=== PATIENT | female | born 2000 | race Caucasian/White ===

== ENCOUNTER 2022-05-04 15:58 | Emergency (ER) | payer OTHER ==
--- NOTE | 2022-05-04 19:34 | ER ---
Nurse's Notes [facility] Name: Nayeli Christensen Age: 22 yrs Sex: Female : 2000 Arrival Date: 05/04/2022 Time: 16:16 Bed 10 Private MD: Diagnosis: SARS-associated coronavirus as the cause of diseases classified elsewhere Presentation: 05/04 17:16 Chief complaint: Patient states: Pt reports sore throat and nasal congestion x2 days. kb3 Pt also reports she [place]. Coronavirus screen: Vaccine status: Patient reports being unvaccinated. Client denies travel out of the [place] in the last 14 days. congestion, runny nose, sore throat, Client presents with at least one sign or symptom that may indicate coronavirus-19. Standard/surgical mask placed on the client. Provider contacted for isolation considerations. Ebola Screen: Patient negative for fever greater than or equal to 101.5 degrees Fahrenheit, and additional compatible Ebola Virus Disease symptoms Patient denies exposure to infectious person. Patient denies travel to an Ebola-affected area in the 21 days before illness onset. No symptoms or risks identified at this time. Initial Sepsis Screen: Does the patient meet any 2 criteria? No. Patient's initial sepsis screen is negative. Does the patient have a suspected source of infection? No. Patient's initial sepsis screen is negative. Risk Assessment: Do you want to hurt yourself or someone else? Patient reports no desire to harm self or others. Onset of symptoms was May 02, 2022. 17:16 Method Of Arrival: Ambulatory kb3 17:16 Acuity: REMA 4 kb3 Triage Assessment: 17:19 General: Appears in no apparent distress. Behavior is calm, cooperative. Pain: kb3 Complains of pain in neck Pain does not radiate. Pain currently is 7 out of 10 on a pain scale. Quality of pain is described as burning, Pain began 2-3 days ago. 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 Last tetanus immunization: up to date. - Social history:: Smoking status: Reported history of juuling and/or vaping. Patient/guardian denies using alcohol, street drugs. Screenin:19 Abuse screen: Denies threats or abuse. Denies injuries from another. Nutritional kd3 screening: No deficits noted. Tuberculosis screening: No symptoms or risk factors identified. Fall Risk None identified. Assessment: 19:20 General: Appears in no apparent distress. Behavior is calm, cooperative. Neuro: Level kd3 of Consciousness is awake, alert, obeys commands, Oriented to person, place, time, situation. Respiratory: Airway is patent Trachea midline Respiratory effort is even, unlabored. Vital Signs: 17:16 BP 101 / 61; Pulse 70; Resp 20; Temp 96.7; Pulse Ox 100% ; Weight 81.65 kg; Height 5 kb3 ft. 4 in. (162.56 cm); Pain 0/10; 19:18 Temp 98(O); kd3 17:16 Body Mass Index 30.90 (81.65 kg, 162.56 cm) kb3 ED Course: 16:16 Patient arrived in ED. mr 16:22 Aylin Burns FNP-C is [facility]. snw 16:22 Joe Martínez MD is Attending Physician. snw 17:19 Triage completed. kb3 17:19 Arm band placed on left wrist. kb3 19:15 Kina Clements, RN is Primary Nurse. kd3 19:19 Patient has correct armband on for positive identification. kd3 19:20 No provider procedures requiring assistance completed. kd3 19:48 Patient did not have IV access during this emergency room visit. kd3 Administered Medications: No medications were administered Medication: 19:20 VIS not applicable for this client. kd3 Outcome: 19:34 Discharge ordered by . snw 19:48 Discharged to home ambulatory. kd3 19:48 Condition: stable 19:48 Discharge instructions given to patient, family, Instructed on discharge instructions, follow up and referral plans. medication usage, Demonstrated understanding of instructions, follow-up care, medications, Prescriptions given X 2. 19:48 Patient left the ED. kd3 Signatures: Aylin Burns, BLOOD BANK BUSINESS MANAGER-C BLOOD BANK BUSINESS MANAGER-Csnw Sharon Rolle mr Kina Clements, RN RN kd3 Trina Amin, RN RN kb3
--- NOTE | 2022-05-04 19:34 | EDPHYS ---
Physician Documentation [facility] Name: Nayeli Christensen Age: 22 yrs Sex: Female : 2000 Arrival Date: 05/04/2022 Time: 16:16 Bed 10 Private MD: ED Physician Joe Martínez HPI: 05/04 19:44 This 22 yrs old Female presents to ER via Ambulatory with complaints of Medication snw Refill, Sore Throat. 19:44 The patient presents to the emergency department requesting refill(s) for: citalopram snw and propranolol. The patient chronically suffers from anxiety. The patient has not experienced similar symptoms in the past. It is unknown whether or not the patient has recently seen a physician. 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 Last tetanus immunization: up to date. - Social history:: Smoking status: Reported history of juuling and/or vaping. Patient/guardian denies using alcohol, street drugs. ROS: 19:43 Constitutional: Negative for fever, chills, and weight loss, Eyes: Negative for injury, snw pain, redness, and discharge, ENT: Negative for injury and discharge, + sore throat Neck: Negative for injury, pain, and swelling, Cardiovascular: Negative for chest pain, palpitations, and edema. 19:43 Abdomen/GI: Negative for abdominal pain, nausea, vomiting, diarrhea, and constipation, Back: Negative for injury and pain, : Negative for injury, bleeding, discharge, and swelling, MS/Extremity: Negative for injury and deformity, Skin: Negative for injury, rash, and discoloration, Neuro: Negative for headache, weakness, numbness, tingling, and seizure, Psych: Negative for depression, anxiety, suicide ideation, homicidal ideation, and hallucinations. 19:43 Respiratory: Positive for cough, with no reported sputum. Exam: 19:41 Constitutional: This is a well developed, well nourished patient who is awake, alert, snw and in no acute distress. Head/Face: Normocephalic, atraumatic. Eyes: Pupils equal round and reactive to light, extra-ocular motions intact. Lids and lashes normal. Conjunctiva and sclera are non-icteric and not injected. Cornea within normal limits. Periorbital areas with no swelling, redness, or edema. Neck: Trachea midline, no thyromegaly or masses palpated, and no cervical lymphadenopathy. Supple, full range of motion without nuchal rigidity, or vertebral point tenderness. No Meningismus. Chest/axilla: Normal chest wall appearance and motion. Nontender with no deformity. No lesions are appreciated. Cardiovascular: Regular rate and rhythm with a normal S1 and S2. No gallops, murmurs, or rubs. Normal PMI, no JVD. No pulse deficits. Respiratory: Lungs have equal breath sounds bilaterally, clear to auscultation and percussion. No rales, rhonchi or wheezes noted. No increased work of breathing, no retractions or nasal flaring. Abdomen/GI: Soft, non-tender, with normal bowel sounds. No distension or tympany. No guarding or rebound. No evidence of tenderness throughout. Back: No spinal tenderness. No costovertebral tenderness. Full range of motion. Skin: Warm, dry with normal turgor. Normal color with no rashes, no lesions, and no evidence of cellulitis. MS/ Extremity: Pulses equal, no cyanosis. Neurovascular intact. Full, normal range of motion. Neuro: Awake and alert, GCS 15, oriented to person, place, time, and situation. Cranial nerves II-XII grossly intact. Motor strength 5/5 in all extremities. Sensory grossly intact. Cerebellar exam normal. Normal gait. Psych: Awake, alert, with orientation to person, place and time. Behavior, mood, and affect are within normal limits. 19:41 ENT: TM's: are normal, Mouth: is normal, Posterior pharynx: erythema, that is moderate. Vital Signs: 17:16 BP 101 / 61; Pulse 70; Resp 20; Temp 96.7; Pulse Ox 100% ; Weight 81.65 kg; Height 5 kb3 ft. 4 in. (162.56 cm); Pain 0/10; 19:18 Temp 98(O); kd3 17:16 Body Mass Index 30.90 (81.65 kg, 162.56 cm) kb3 MDM: 17:59 Patient medically screened. canelo 19:41 Data reviewed: vital signs, nurses notes. Data interpreted: Pulse oximetry: on room air snw is 100 %. Interpretation: normal. Counseling: I had a detailed discussion with the patient and/or guardian regarding: the historical points, exam findings, and any diagnostic results supporting the discharge/admit diagnosis, lab results, the need for outpatient follow up, to return to the emergency department if symptoms worsen or persist or if there are any questions or concerns that arise at home. Response to treatment: There is no appreciated change of the patient's symptoms at this time. Special discussion: Based on the history and exam findings, there is no indication for further emergent testing or inpatient evaluation. I discussed with the patient/guardian the need to see the primary care provider for further evaluation of the symptoms. 05/04 17:22 Order name: Strep; Complete Time: 18:34 kb3 05/04 17:31 Order name: COVID-19 SARS RT PCR (Document "Date of Onset" if Symptomatic); Complete dh3 Time: 19:17 05/04 18:26 Order name: Throat Culture EDMS Administered Medications: No medications were administered Disposition Summary: 05/04/22 19:34 Discharge Ordered Location: Home snw Condition: Stable snw Diagnosis - SARS-associated coronavirus as the cause of diseases classified elsewhere snw Followup: snw - With: Private Physician - When: 2 - 3 days - Reason: Recheck today's complaints, Continuance of care, Re-evaluation by your physician Followup: snw - With: Emergency Department - When: As needed - Reason: Worsening of condition Discharge Instructions: - Discharge Summary Sheet snw - Medicine Refill at the Emergency Department snw - Aspirin and Your Heart snw - COVID-19 snw - 10 Things You Can Do to Manage Your COVID-19 Symptoms at Home - [facility] snw - COVID-19: Quarantine vs. Isolation - [facility] snw Forms: - Medication Reconciliation Form snw - Thank You Letter snw - Antibiotic Education snw - Prescription Opioid Use snw Prescriptions: - Propranolol 40 mg Oral Tablet - take 1 tablet by ORAL route every 8 hours; 100 tablet; Refills: 0, Product snw Selection Permitted - Citalopram 40 mg Oral Tablet - take 1 tablet by ORAL route once daily; 30 tablet; Refills: 0, Product snw Selection Permitted Signatures: Dispatcher [employer] Joe Espinoza MD MD cha Waters, Shelly, PROCUREMENT ACCOUNTANT-C PROCUREMENT ACCOUNTANT-Csnw Trina Amin, RN RN kb3
[2022-05-04 22:53] VITALS: BP 101/61; O2SAT 100
[2022-05-04 22:56] VITALS: TEMP 98
== END 2022-05-04 19:48 | disposition home or self-care (01) ==
LOC: ER 15:58
DX: U07.1 COVID-19 (principal); F41.9 Anxiety disorder, unspecified
CPT/HCPCS: 87070; 87081; U0003; 99282